=== PATIENT | male | born 1935 | race African-American/Black ===

== ENCOUNTER 2018-08-15 13:33 | Inpatient (IN) | payer OTHER ==
[~2018-08-15] VITALS: Ht 167.6 cm; Wt 77.6 kg
[2018-08-15] MEDS ORDERED: DIPHENHYDRAMINE 50MG/ML VIAL IV ONE (14:00)
[2018-08-15] MEDS ORDERED: FAMOTIDINE 20MG/2ML VIAL IV ONE (14:00)
[2018-08-15] MEDS ORDERED: METHYLPREDNISOLONE SOD SUCC 125 MG/2 ML VIAL IV ONE (14:00)
[2018-08-15] MEDS ORDERED: SODIUM CHLORIDE 0.9% 1,000 ML IV ONE (14:02)
[2018-08-15] MEDS ORDERED: ONDANSETRON HCL 4MG/2ML INJ IV PRN (16:15)
[2018-08-15] MEDS ORDERED: LORAZEPAM 2MG/ML CPJ IV PRN (16:15)
[2018-08-15] MEDS ORDERED: DIPHENHYDRAMINE 50MG/ML VIAL IV PRN (16:15)
[2018-08-15] MEDS ORDERED: HYDROMORPHONE HCL/PF 2MG/ML CPJ IV PRN (16:15)
[2018-08-15] MEDS ORDERED: HYDROCODONE/ACETAMINOPHEN 5/325MG TABLET PO PRN (16:15)
[2018-08-15] MEDS ORDERED: ACETAMINOPHEN 325MG TABLET PO PRN (16:15)
[2018-08-15] MEDS ORDERED: DOCUSATE SODIUM 100MG CAPSULE PO PRN (16:15)
[2018-08-15] MEDS ORDERED: GUAIFENESIN 200MG/10ML SUGAR FREE UDC PO PRN (16:15)
[2018-08-15] MEDS ORDERED: CLONIDINE 0.1MG TABLET PO PRN (16:15)
[2018-08-15] MEDS ORDERED: IPRATROPIUM/ALBUTEROL 0.5-3(2.5)MG/3ML NEB INH PRN (16:15)
[2018-08-15] MEDS ORDERED: MAGNESIUM/ALUMINUM HYDROXIDE/SIMETHICONE 30ML UDC PO PRN (16:15)
[2018-08-15] MEDS ORDERED: NA PHOS,M-B/NA PHOS,DI-BA ENEMA 118ML PR PRN (16:15)
[2018-08-15 16:23] LABS: CHLORIDE 107 mEq/L (98-107)
[2018-08-15] MEDS ORDERED: METO5TAB2 MT (18:28)
[2018-08-15] MEDS ORDERED: METF-414 MT (18:28)
[2018-08-15] MEDS ORDERED: CHOL500063 MT (18:38)
[2018-08-15] MEDS ORDERED: GINS250C10 PO (18:38)
[2018-08-15] MEDS ORDERED: TAMS0.4C31 MT (18:38)
[2018-08-15] MEDS ORDERED: BENA40TA9 MT (18:38)
[2018-08-15] MEDS ORDERED: FINA5TAB11 MT (18:38)
[2018-08-15] MEDS ORDERED: PRAV40TA58 MT (18:38)
[2018-08-15] MEDS ORDERED: OMEG100017 MT (18:38)
[2018-08-15] MEDS ORDERED: AMLO5TAB88 MT (18:38)
[2018-08-15] MEDS ORDERED: ASPI-1079 PO (18:38)
[2018-08-15] MEDS ORDERED: ZIAC10 MT (18:38)
[2018-08-15] MEDS ORDERED: SITA100T11 MT (18:38)
[2018-08-15] MEDS ORDERED: CYAN50008 MT (18:38)
[2018-08-15] MEDS ORDERED: DEXTROSE 50% WATER 50ML SYRINGE IV PRN (19:30)
[2018-08-15 20:00] VITALS: BP 123/68
[2018-08-15] MEDS: METHYLPREDNISOLONE SOD SUCC 125 MG/2 ML VIAL IV SCH (20:57)
[2018-08-15] MEDS: INSULIN LISPRO 100 UNITS/ML SUBCUT SCH (20:58)
[2018-08-15] MEDS: BLOOD SUGAR DIAGNOSTIC STRIP TEST SCH (20:59)
[2018-08-16] VITALS: BP 128/72
[2018-08-16] MEDS: METHYLPREDNISOLONE SOD SUCC 125 MG/2 ML VIAL IV SCH ×2 (02:40→08:08)
[2018-08-16 04:00] VITALS: BP 118/67
[2018-08-16] MEDS: BLOOD SUGAR DIAGNOSTIC STRIP TEST SCH (05:49)
[2018-08-16] MEDS: INSULIN LISPRO 100 UNITS/ML SUBCUT SCH (05:49)
[2018-08-16 07:07] LABS: BASOPHILS % 0.1 % (0.0-2.0); HEMATOCRIT. 36.2 % (42.0-52.0); HEMOGLOBIN. 12.1 g/dL (14.0-18.0); LYMPHOCYTES % 23.4 % (20.0-50.0); MEAN CORPUSCULAR HEMOGLOBIN 30.7 pg (28.0-32.0); MEAN CORPUSCULAR VOLUME 91.8 fL (80.0-94.0); MEAN PLATELET VOLUME 7.8 fl (7.4-10.4); MONOCYTES % 2.4 % (2.0-8.0); NEUTROPHILS % 74.1 % (40.0-76.0); PLATELET 228 x1000/uL (130-400); RED BLOOD CELL COUNT 3.95 mill/uL (4.7-6.1); RED CELL DISTRIBUTION WIDTH 13.5 % (11.6-14.6)
[2018-08-16 07:10] LABS: CHLORIDE 109 mEq/L (98-107)
[2018-08-16 07:47] LABS: HDL CHOLESTEROL 63 mg/dL (40-59); LDL CHOLESTEROL 49 mg/dL (5-100); T4 FREE 0.97 ng/dL (0.76-1.46)
[2018-08-16] MEDS ORDERED: ASPIRIN 81MG EC TABLET PO SCH (09:00)
[2018-08-16] MEDS ORDERED: ENOXAPARIN 40MG/0.4ML SYR SUBCUT SCH (09:00)
== END 2018-08-16 10:00 | disposition home or self-care (01) | DRG 916 ==
LOC: ER 14:11 → 8WST 16:27 → ENRESERV 16:27
PROVIDERS: ADMIT Internal Medicine; ATTEND Internal Medicine
DX: T78.3XXA Angioneurotic edema, initial encounter (principal); I10 Essential (primary) hypertension; E11.9 Type 2 diabetes mellitus without complications; Z79.84 Long term (current) use of oral hypoglycemic drugs; Z88.8 Allergy status to other drugs, medicaments and biological substances
CPT/HCPCS: 36415; 80048; 80061; 82962; 84439; 84443; 84484; 96361; 96374; 96375; 99291; J1200; J1650; J1815; J2930; J3490; J7030